=== PATIENT | female | born 1960 | race Two or more races ===

== ENCOUNTER 2017-05-24 10:58 | Outpatient (CLI) | payer OTHER | END 2017-05-24 11:13 | disposition home or self-care (01) | LOC: MRI 10:58 | DX: M25.551 Pain in right hip (principal); M16.11 Unilateral primary osteoarthritis, right hip | CPT/HCPCS: 73721 ==

== ENCOUNTER 2017-05-24 11:28 | Outpatient (CLI) | payer OTHER | END 2017-05-24 11:39 | disposition home or self-care (01) | LOC: RAD 11:28 | DX: R91.1 Solitary pulmonary nodule (principal); M25.551 Pain in right hip; M25.552 Pain in left hip ==

== ENCOUNTER 2017-05-24 11:45 | Outpatient (CLI) | payer OTHER | END 2017-05-24 11:51 | disposition home or self-care (01) | LOC: MAMO-SONO 11:45 | DX: Z12.31 Encounter for screening mammogram for malignant neoplasm of breast (principal); Z87.898 Personal history of other specified conditions ==

== ENCOUNTER 2017-11-01 08:30 | Outpatient (CLI) | payer OTHER | END 2017-11-01 08:36 | disposition home or self-care (01) | LOC: TOM 08:30 | DX: R04.2 Hemoptysis (principal); R91.8 Other nonspecific abnormal finding of lung field ==

== ENCOUNTER → 2018-02-09 | Outpatient (CLI) | payer OTHER | END | disposition home or self-care (01) | LOC: NUCLEAR 11:32 | DX: M81.0 Age-related osteoporosis without current pathological fracture (principal) ==

== ENCOUNTER 2018-05-31 08:52 | Outpatient (CLI) | payer OTHER | END 2018-05-31 08:55 | disposition home or self-care (01) | LOC: MAMO-SONO 08:52 | DX: Z12.31 Encounter for screening mammogram for malignant neoplasm of breast (principal); Z87.898 Personal history of other specified conditions; N64.4 Mastodynia; N60.11 Diffuse cystic mastopathy of right breast; N63.10 Unspecified lump in the right breast, unspecified quadrant; N63.20 Unspecified lump in the left breast, unspecified quadrant ==

== ENCOUNTER 2018-06-14 07:16 | Outpatient (CLI) | payer OTHER | END 2018-06-14 07:18 | disposition home or self-care (01) | LOC: SONOGRAMA 07:16 | DX: R10.84 Generalized abdominal pain (principal) ==

== ENCOUNTER → 2018-06-22 | Outpatient (CLI) | payer OTHER | END | disposition home or self-care (01) | LOC: NUCLEAR 09:23 | DX: M06.09 Rheumatoid arthritis without rheumatoid factor, multiple sites (principal) | CPT/HCPCS: 78315; A9503 ==

== ENCOUNTER → 2019-11-07 | Outpatient (CLI) | payer OTHER | END | disposition home or self-care (01) | LOC: MAMO-SONO 09:23 | PROVIDERS: ATTEND Obstetrics & Gynecology Maternal & Fetal Medicine | DX: Z12.31 Encounter for screening mammogram for malignant neoplasm of breast (principal); N64.4 Mastodynia; N60.11 Diffuse cystic mastopathy of right breast; N64.59 Other signs and symptoms in breast ==

== ENCOUNTER 2020-03-18 10:10 | Outpatient (CLI) | payer OTHER | END 2020-03-18 10:22 | disposition home or self-care (01) | LOC: SONOGRAMA 10:10 | PROVIDERS: ATTEND Internal Medicine Rheumatology | DX: M25.822 Other specified joint disorders, left elbow (principal); M06.0A Rheumatoid arthritis without rheumatoid factor, other specified site ==

== ENCOUNTER 2020-04-04 12:30 | Outpatient (CLI) | payer OTHER | END 2020-04-04 15:59 | disposition home or self-care (01) | LOC: NUCLEAR 12:30 | PROVIDERS: ATTEND Obstetrics & Gynecology Maternal & Fetal Medicine | DX: M81.0 Age-related osteoporosis without current pathological fracture (principal) ==

== ENCOUNTER → 2020-12-23 | Outpatient (CLI) | payer OTHER | END | disposition home or self-care (01) | LOC: MAMO-SONO 08:13 | PROVIDERS: ATTEND Obstetrics & Gynecology | DX: N83.291 Other ovarian cyst, right side (principal); N84.0 Polyp of corpus uteri; N81.11 Cystocele, midline; N28.89 Other specified disorders of kidney and ureter; N64.89 Other specified disorders of breast; N20.0 Calculus of kidney; Z12.31 Encounter for screening mammogram for malignant neoplasm of breast ==

== ENCOUNTER → 2021-12-24 | Outpatient (CLI) | payer OTHER | END | disposition home or self-care (01) | LOC: MRI 12:11 | PROVIDERS: ATTEND Orthopaedic Surgery Sports Medicine | DX: M75.52 Bursitis of left shoulder (principal); M75.51 Bursitis of right shoulder | CPT/HCPCS: 73221 ==

== ENCOUNTER → 2021-12-30 | Outpatient (CLI) | payer OTHER | END | disposition home or self-care (01) | LOC: MAMO-SONO 11:07 | PROVIDERS: ATTEND Obstetrics & Gynecology Maternal & Fetal Medicine | DX: Z12.31 Encounter for screening mammogram for malignant neoplasm of breast (principal); N63.0 Unspecified lump in unspecified breast; N64.4 Mastodynia; N60.11 Diffuse cystic mastopathy of right breast ==

== ENCOUNTER 2022-11-22 08:19 | Outpatient (CLI) | payer OTHER | END 2022-11-22 08:37 | disposition home or self-care (01) | LOC: RAD 08:19 | PROVIDERS: ATTEND Internal Medicine | DX: Q61.02 Congenital multiple renal cysts (principal); R10.10 Upper abdominal pain, unspecified; M54.59 Other low back pain | CPT/HCPCS: 72158; 76700; 76770; Q9965; 72149 ==

== ENCOUNTER 2023-02-01 10:25 | Outpatient (CLI) | payer OTHER | END 2023-02-01 10:30 | disposition home or self-care (01) | LOC: RAD 10:25 | PROVIDERS: ATTEND Urology | DX: N20.0 Calculus of kidney (principal) ==

== ENCOUNTER 2023-06-02 07:47 | Outpatient (CLI) | payer OTHER | END 2023-06-02 07:58 | disposition home or self-care (01) | LOC: TOM 07:47 | PROVIDERS: ATTEND Internal Medicine | DX: N28.1 Cyst of kidney, acquired (principal) | CPT/HCPCS: 74177; Q9965 ==

== ENCOUNTER 2023-06-10 10:55 | Outpatient (CLI) | payer OTHER | END 2023-06-10 10:58 | disposition home or self-care (01) | LOC: NUCLEAR 10:55 | PROVIDERS: ATTEND Internal Medicine | DX: M81.0 Age-related osteoporosis without current pathological fracture (principal); I34.1 Nonrheumatic mitral (valve) prolapse ==

== ENCOUNTER 2023-06-27 11:04 | Emergency (ER) | payer OTHER ==
[~2023-06-27] VITALS: Ht 154.9 cm; Wt 70.3 kg
[2023-06-27] MEDS ORDERED: SINGULAIR4 MG PO (12:56)
[2023-06-27] MEDS ORDERED: PROTONIX20 MG PO (12:56)
[2023-06-27] MEDS ORDERED: PEPCID AC10 MG (12:57)
[2023-06-27 14:29] LABS: ALBUMIN 3.9 gm/dL (3.4-5.0); BILIRUBIN TOTAL 0.87 mg/dL (0.3-1.2); CALCIUM 9.5 mg/dL (8.5-10.1); CREATININE SERUM 0.88 mg/dL (0.55-1.02); GFR 64.69; GLOBULINA 4.6 G/DL (2.4-3.5); POTASSIUM 3.85 mEq/L (3.5-5.1); TOTAL PROTEIN 8.5 gm/dL (6.4-8.2)
[2023-06-27 14:44] LABS: HEMATOCRIT 42.4 % (36.0-45.00); HEMOGLOBIN 14.5 g/dL (12.0-15.00); MEAN CELL VOLUME 92.2 fL (80.00-100.00); MEAN CORPUSCULAR HEMOGLOBIN 31.6 pg (27.00-32.0); MEAN CORPUSCULAR HGB CONC 34.3 g/dl (32.0-36.0); PLATELET COUNT 236 K/uL (150-450); RED CELL DISTRIBUTION WIDTH 12.5 % (11.5-14.5)
== END 2023-06-27 16:05 | disposition home or self-care (01) ==
LOC: ER 11:04
PROVIDERS: General Practice
DX: R10.9 Unspecified abdominal pain (principal)

== ENCOUNTER 2023-11-15 13:25 | Outpatient (CLI) | payer OTHER ==
[~2023-11-15 13:25] MED LIST: PEPCID AC10 MG; PROTONIX20 MG PO; SINGULAIR4 MG PO
== END 2023-11-15 13:33 | disposition home or self-care (01) ==
LOC: MAMO-SONO 13:25
PROVIDERS: ATTEND Internal Medicine
DX: N64.4 Mastodynia (principal); R92.8 Other abnormal and inconclusive findings on diagnostic imaging of breast; Z12.31 Encounter for screening mammogram for malignant neoplasm of breast

== ENCOUNTER 2024-02-05 13:40 | Emergency (ER) | payer OTHER ==
[~2024-02-05] VITALS: Ht 154.9 cm; Wt 70.8 kg
[2024-02-05] MEDS ORDERED: PLAQUENIL (14:11)
[2024-02-05] MEDS ORDERED: ACID REDUCER20 M1 (14:12)
[2024-02-05] MEDS ORDERED: DEXAMETHASONE SODIUM PHOSPHATE 4 MG/ML VIAL IM STA (15:23)
[2024-02-05] MEDS ORDERED: ORPHENADRINE CITRATE 30 MG/ML AMPUL IM STA (15:24)
[2024-02-05] MEDS ORDERED: NORFLEX100MG PO (18:01)
[2024-02-05] MEDS ORDERED: METRONIDAZOLE500 MG PO (18:18)
[2024-02-05] MEDS ORDERED: ACIDOPHILUS1 EAC3 PO (18:20)
== END 2024-02-05 18:27 | disposition home or self-care (01) ==
LOC: ER 13:40
DX: M71.552 Other bursitis, not elsewhere classified, left hip (principal)
CPT/HCPCS: 73030; 73502; 96372; 99283; J1885; J2360

== ENCOUNTER 2024-03-07 10:51 | Outpatient (CLI) | payer OTHER ==
[~2024-03-07 10:51] MED LIST changes: +ACID REDUCER20 M1; +ACIDOPHILUS1 EAC3 PO; +METRONIDAZOLE500 MG PO; +NORFLEX100MG PO; +PLAQUENIL
== END 2024-03-07 11:02 | disposition home or self-care (01) ==
LOC: TOM 10:51
DX: M19.041 Primary osteoarthritis, right hand (principal); J45.20 Mild intermittent asthma, uncomplicated; S70.01XS Contusion of right hip, sequela

== ENCOUNTER 2024-11-20 12:08 | Outpatient (CLI) | payer OTHER | END 2024-11-20 12:12 | disposition home or self-care (01) | LOC: RAD 12:08 | PROVIDERS: ATTEND Internal Medicine | DX: M15.0 Primary generalized (osteo)arthritis (principal) ==

== ENCOUNTER 2024-12-05 11:18 | Outpatient (CLI) | payer OTHER | END 2024-12-05 11:23 | disposition home or self-care (01) | LOC: MRI 11:18 | PROVIDERS: ATTEND Internal Medicine | DX: M25.511 Pain in right shoulder (principal) | CPT/HCPCS: 73218 ==

== ENCOUNTER 2024-12-12 07:40 | Outpatient (CLI) | payer OTHER | END 2024-12-12 07:43 | disposition home or self-care (01) | LOC: TOM 07:40 | PROVIDERS: ATTEND Internal Medicine | DX: K46.0 Unspecified abdominal hernia with obstruction, without gangrene (principal) | CPT/HCPCS: 74177; Q9965 ==

== ENCOUNTER 2025-02-13 10:12 | Outpatient (CLI) | payer OTHER | END 2025-02-13 10:16 | disposition home or self-care (01) | LOC: MAMO-SONO 10:12 | PROVIDERS: ATTEND Obstetrics & Gynecology Maternal & Fetal Medicine | DX: N63.0 Unspecified lump in unspecified breast (principal); N64.4 Mastodynia; N60.11 Diffuse cystic mastopathy of right breast; Z12.31 Encounter for screening mammogram for malignant neoplasm of breast ==